=== PATIENT | male | born 1970 | race Two or more races ===

== ENCOUNTER 2021-05-24 07:43 | Inpatient (IN) | payer MEDICAID, OTHER ==
[~2021-05-24] VITALS: Ht 170.2 cm; Wt 76.6 kg
[2021-05-24 09:21] LABS: Basophils # (auto) 0.1 10 ^3/uL (0-0.2); Basophils % (auto) 0.8 % (0.0-2.0); Eosinophils # (auto) 0.2 10 ^3/uL (0-0.8); Eosinophils % (auto) 2.3 % (0.0-7.0); Hematocrit 45.2 % (41.0-53.0); Hemoglobin 15.2 g/dL (13.5-17.5); Lymphocytes # (auto) 1.9 10 ^3/uL (0.4-5.4); Lymphocytes % (auto) 28.2 % (10.0-50.0); Mean Corpuscular Hemoglobin 27.7 pg (28.0-32.0); Mean Corpuscular Hgb Conc. 33.5 g/dL (32.0-36.0); Mean Corpuscular Volume 82.6 fL (80.0-100.0); Monocytes # (auto) 0.5 10 ^3/uL (0-1.3); Neutrophils % (auto) 61.7 % (37.0-80.0); Red Blood Cells 5.48 10^6/uL (4.5-5.90); Red Cell Distribution Width 13.7 % (11.8-14.3); White Blood Cell 6.6 10^3/uL (4.4-10.8)
[2021-05-24 09:41] LABS: Albumin 3.8 g/dL (3.4-5.0); Calcium 9.4 mg/dL (8.5-10.1); Potassium 3.6 mmol/L (3.5-5.1)
[2021-05-24 09:46] LABS: BUN/Creatinine Ratio 15.6; Bilirubin, Total 0.5 mg/dL (0.2-1.0); Total Protein 8.1 g/dL (6.4-8.2)
[2021-05-24] MEDS ORDERED: cloNIDine HCL 0.1 MG TAB PO ONE (10:15)
[2021-05-24] MEDS ORDERED: amLODIPine BESYLATE 5 MG TAB PO ONE (13:30)
[2021-05-24] MEDS ORDERED: hydrALAZINE HCL 20 MG/ML VL ONE (19:47)
[2021-05-24] MEDS ORDERED: hydrALAZINE HCL 20 MG/ML VL IV ONE (20:00)
[2021-05-24] MEDS ORDERED: MORPHINE SULFATE INJECTION 2 MG/ML SYRG IV PRN (21:15)
[2021-05-24] MEDS ORDERED: ONDANSETRON HCL 4 MG/2 ML VIAL IV PRN (21:15)
[2021-05-24] MEDS ORDERED: ACETAMINOPHEN 325 MG TAB PO PRN (21:15)
[2021-05-24] MEDS ORDERED: TEMAZEPAM 15 MG CAP PO PRN (21:15)
[2021-05-24] MEDS ORDERED: NITROGLYCERIN 0.4 MG SL TAB SL PRN (21:15)
[2021-05-24] MEDS ORDERED: ATORVASTATIN 20 MG TAB PO SCH (22:00)
[2021-05-25 10:06] LABS: Basophils # (auto) 0 10 ^3/uL (0-0.2); Basophils % (auto) 0.4 % (0.0-2.0); Eosinophils # (auto) 0.1 10 ^3/uL (0-0.8); Eosinophils % (auto) 1.8 % (0.0-7.0); Hematocrit 43.5 % (41.0-53.0); Hemoglobin 14.7 g/dL (13.5-17.5); Lymphocytes % (auto) 26.1 % (10.0-50.0); Mean Corpuscular Hemoglobin 27.8 pg (28.0-32.0); Mean Corpuscular Hgb Conc. 33.7 g/dL (32.0-36.0); Mean Corpuscular Volume 82.3 fL (80.0-100.0); Monocytes # (auto) 0.5 10 ^3/uL (0-1.3); Monocytes % (auto) 6.9 % (0.0-12.0); Neutrophils % (auto) 64.8 % (37.0-80.0); Nucleated Red Blood Cells % 0.1 %; Red Blood Cells 5.28 10^6/uL (4.5-5.90); Red Cell Distribution Width 13.7 % (11.8-14.3); White Blood Cell 7.7 10^3/uL (4.4-10.8)
[2021-05-25 10:08] LABS: Calcium 9.5 mg/dL (8.5-10.1); Potassium 3.5 mmol/L (3.5-5.1)
[2021-05-25] MEDS ORDERED: LISINOPRIL 20 MG TAB PO ONE (11:00)
[2021-05-25] MEDS: ENOXAPARIN SOD 40 MG/0.4 ML SYRINGE SC SCH (11:14)
[2021-05-25] MEDS: ASPirin 81 mg TAB PO SCH (11:14)
[2021-05-25 11:31] LABS: Cholesterol 212 mg/dL (< 200)
[2021-05-25 11:34] LABS: HDL Cholesterol 48 mg/dL (40-59); LDL Cholesterol 119 mg/dL (< 100); Triglycerides 175 mg/dL (< 150)
[2021-05-25] MEDS ORDERED: DEXTROSE (50%) 50ML SYRG IV PRN (13:00)
[2021-05-25] MEDS: ATORVASTATIN 20 MG TAB PO SCH ×2 (13:11→22:01)
[2021-05-25 17:40] VITALS: BP 159/116
[2021-05-25 18:33] VITALS: BP 159/116
[2021-05-25 22:00] VITALS: BP 142/86
[2021-05-25] MEDS: ACCU-CHEK COMFORT CURVE STRIP VI SCH (22:00)
[2021-05-25] MEDS: METOPROLOL TARTRATE 50 MG TAB PO SCH (22:01)
[2021-05-25] MEDS: InsuLIN REG 1unit/0.01ml Soln (100units/ml) SC SCH (22:10)
[2021-05-26] VITALS (7 sets, daily range): BP systolic 120–161; BP diastolic 81–105
[2021-05-26] MEDS: InsuLIN REG 1unit/0.01ml Soln (100units/ml) SC SCH ×4 (06:21→23:15)
[2021-05-26] MEDS: ACCU-CHEK COMFORT CURVE STRIP VI SCH ×4 (06:21→22:55)
[2021-05-26] MEDS ORDERED: ANGIOMAX 250 MG VIAL IV ONE (08:22)
[2021-05-26] MEDS ORDERED: fentaNYL CITRATE 100 MCG/2 ML VL ONE (08:22)
[2021-05-26] MEDS ORDERED: MIDAZOLAM HCL 2MG/2ML 2ml VIAL (1mg/ml) ONE (08:23)
[2021-05-26] MEDS ORDERED: HEPARIN SODIUM (PORCINE) 5000 UNITS/ML 1ML VIAL ONE (08:24)
[2021-05-26] MEDS ORDERED: VERAPAMIL 2.5MG/ML INJ 2ML VIAL IV ONE (08:24)
[2021-05-26] MEDS ORDERED: LIDOCAINE 2%HCL (LOCAL ANESTH.) INJ 20ML MDV ONE (08:34)
[2021-05-26] MEDS ORDERED: SODIUM CHL 0.9% 0 ML ONE (08:34)
[2021-05-26] MEDS: ASPirin 81 mg TAB PO SCH (11:07)
[2021-05-26] MEDS: METOPROLOL TARTRATE 50 MG TAB PO SCH ×2 (11:07→22:19)
[2021-05-26] MEDS: LISINOPRIL 20 MG TAB PO SCH (11:08)
[2021-05-26] MEDS: ENOXAPARIN SOD 40 MG/0.4 ML SYRINGE SC SCH (11:09)
[2021-05-26 15:59] LABS: Basophils # (auto) 0 10 ^3/uL (0-0.2); Basophils % (auto) 0.4 % (0.0-2.0); Eosinophils # (auto) 0.2 10 ^3/uL (0-0.8); Eosinophils % (auto) 2.1 % (0.0-7.0); Hematocrit 41.6 % (41.0-53.0); Hemoglobin 14.1 g/dL (13.5-17.5); Lymphocytes # (auto) 2.4 10 ^3/uL (0.4-5.4); Lymphocytes % (auto) 30.4 % (10.0-50.0); Mean Corpuscular Hemoglobin 27.8 pg (28.0-32.0); Mean Corpuscular Hgb Conc. 33.8 g/dL (32.0-36.0); Mean Corpuscular Volume 82.2 fL (80.0-100.0); Monocytes # (auto) 0.5 10 ^3/uL (0-1.3); Monocytes % (auto) 6.3 % (0.0-12.0); Neutrophils # (auto) 4.8 10 ^3/uL (1.6-8.6); Neutrophils % (auto) 60.8 % (37.0-80.0); Nucleated Red Blood Cells % 0.1 %; Red Blood Cells 5.06 10^6/uL (4.5-5.90); Red Cell Distribution Width 13.4 % (11.8-14.3); White Blood Cell 7.9 10^3/uL (4.4-10.8)
[2021-05-26 16:13] LABS: INR 1.01 (0.9-1.15); Partial Thromboplastin Time 29.1 sec (23.6-33.0)
[2021-05-26 16:17] LABS: BUN/Creatinine Ratio 23.6; Calcium 8.9 mg/dL (8.5-10.1); Potassium 3.6 mmol/L (3.5-5.1)
[2021-05-26] MEDS: ATORVASTATIN 20 MG TAB PO SCH (22:18)
[2021-05-27 05:00] VITALS: BP 137/92
[2021-05-27] MEDS: ACCU-CHEK COMFORT CURVE STRIP VI SCH ×2 (06:29→11:38)
[2021-05-27] MEDS: InsuLIN REG 1unit/0.01ml Soln (100units/ml) SC SCH ×2 (06:29→11:38)
[2021-05-27 08:42] VITALS: BP 135/87
[2021-05-27] MEDS: LISINOPRIL 20 MG TAB PO SCH (08:55)
[2021-05-27] MEDS: METOPROLOL TARTRATE 50 MG TAB PO SCH (08:55)
[2021-05-27] MEDS: ENOXAPARIN SOD 40 MG/0.4 ML SYRINGE SC SCH (08:55)
[2021-05-27] MEDS: ASPirin 81 mg TAB PO SCH (08:55)
[2021-05-27] MEDS ORDERED: MET50T PO (10:50)
[2021-05-27] MEDS ORDERED: LISI20TA28 PO (10:50)
[2021-05-27] MEDS ORDERED: METF-372 PO (10:50)
[2021-05-27] MEDS ORDERED: ATO40T PO (10:50)
[2021-05-27] MEDS ORDERED: ASPI-498 OR (10:50)
[2021-05-27 12:08] VITALS: BP 135/87
== END 2021-05-27 14:18 | disposition home or self-care (01) | DRG 192 ==
LOC: ER 07:43 → TELE 21:10 → TELE-CENTR 05-25 17:00
PROVIDERS: ADMIT Nurse Practitioner; ATTEND Family Medicine
PROC: 4A023N7 Measurement of Cardiac Sampling and Pressure, Left Heart, Percutaneous Approach (ICD-10-PCS; principal; 2021-05-26)
PROC: B211YZZ Fluoroscopy of Multiple Coronary Arteries using Other Contrast (ICD-10-PCS; 2021-05-26)
PROC: B215YZZ Fluoroscopy of Left Heart using Other Contrast (ICD-10-PCS; 2021-05-26)
DX: I16.1 Hypertensive emergency (principal); I21.A1 Myocardial infarction type 2; E11.65 Type 2 diabetes mellitus with hyperglycemia; I20.0 Unstable angina; E66.9 Obesity, unspecified; E78.00 Pure hypercholesterolemia, unspecified; E78.5 Hyperlipidemia, unspecified; I10 Essential (primary) hypertension; Z79.899 Other long term (current) drug therapy; Z82.49 Family history of ischemic heart disease and other diseases of the circulatory system; Z83.3 Family history of diabetes mellitus; Z86.16 Personal history of COVID-19; Z88.0 Allergy status to penicillin; Z68.26 Body mass index [BMI] 26.0-26.9, adult; Z20.822 Contact with and (suspected) exposure to COVID-19
CPT/HCPCS: 36415; 71046; 80048; 80053; 80061; 82962; 83036; 84443; 84484; 85025; 85610; 85730; 87426; 93005; 93306; 93458; 99152; G0378; J1815; J2250